=== PATIENT | male | born 1990 | race Two or more races ===

== ENCOUNTER 2024-12-08 10:17 | Emergency (ER) | payer OTHER ==
[2024-12-08] MEDS ORDERED: BACITRACIN ZINC 15 GM TUBE TOPICAL OINTMENT ONE (11:15)
[2024-12-08] MEDS ORDERED: DIPHTH,PERTUSS(ACELL),TET 0.5 ML DISP.SYRIN IM ONE (11:23)
[2024-12-08] MEDS: BACITRACIN ZINC 15 GM TUBE TOPICAL OINTMENT TP ONE (11:28)
[2024-12-08] MEDS: DIPHTH,PERTUSS(ACELL),TET 0.5 ML DISP.SYRIN IM ONE (11:28)
[2024-12-08 11:42] VITALS: BP 133/84; PULSE 77; RESP 18; TEMP 98; BMI 31.8
== END 2024-12-08 11:54 | disposition home or self-care (01) ==
LOC: JERFT 10:17
PROC: 3E0234Z Introduction of Serum, Toxoid and Vaccine into Muscle, Percutaneous Approach (ICD-10-PCS; principal; 2024-12-08)
DX: S01.21XA Laceration without foreign body of nose, initial encounter (principal); W01.198A Fall on same level from slipping, tripping and stumbling with subsequent striking against other object, initial encounter
CPT/HCPCS: 90715; 99284-25